=== PATIENT | male | born 1935 | race Caucasian/White ===

== ENCOUNTER 2016-12-17 07:29 | Emergency (ER) | payer MEDICARE ==
[~2016-12-17] VITALS: Ht 175.3 cm; Wt 77.0 kg
[2016-12-17] MEDS ORDERED: DILTIAZEM90 M1 PO (07:41)
[2016-12-17] MEDS ORDERED: ASPIRIN EC325 MG PO (07:41)
[2016-12-17] MEDS ORDERED: FUROSEMIDE20 MG PO (07:45)
[2016-12-17] MEDS ORDERED: SPIRIVA HANDIHALER IN (07:46)
[2016-12-17] MEDS ORDERED: MULTI VIT PO (07:46)
[2016-12-17] MEDS ORDERED: SYMBICORT1 AE1 IN (07:46)
[2016-12-17] MEDS ORDERED: PROAIR HFA IN (07:48)
[2016-12-17] MEDS ORDERED: ALBUTEROL SUL0.083 % IN (07:50)
[2016-12-17] MEDS ORDERED: K-DUR/KLOR-CON20 MEQ PO (07:51)
[2016-12-17] MEDS ORDERED: LEVOTHYROXIN25 MC1 PO (07:51)
[2016-12-17] MEDS ORDERED: [UNRECOGNIZED DRUG - OTHER] PO (07:52)
[2016-12-17] MEDS ORDERED: ALPRAZOLAM0.25 MG PO (07:53)
[2016-12-17] MEDS ORDERED: ROBAFEN DM1 M1 PO (07:54)
[2016-12-17 08:39] LABS: HEMATOCRIT 47.3 % (39.0-50.0); HEMOGLOBIN 14.5 g/dl (14.0-18.0); IMMATURE GRANULOCYTES 0.3 % (0.0-1.0); MEAN CELL VOLUME 101.5 fL CALC (80.0-100.0); MEAN CORPUSCULAR HGB 31.1 pG CALC (26.0-32.0); MEAN CORPUSCULAR HGB CONC 30.7 g/L CALC (32.0-36.0); NEUT# 4.03 thou/uL (1.82-7.42); RED BLOOD COUNT 4.66 mill/uL (4.70-6.10)
[2016-12-17 08:50] LABS: ALBUMIN 3.6 g/dL (3.2-5.0); ALKALINE PHOSPHATASE 66 u/l (38-126); BILIRUBIN, TOTAL 0.8 mg/dL (0.0-1.4); BUN 17 mg/dL (8-23); BUN/CREATININE RATIO 25 (12-20 (CALC)); CALCIUM 8.7 mg/dL (8.4-10.2); CHLORIDE 100 mmol/l (95-108); CREATININE 0.7 mg/dL (0.7-1.3); GFR > 60 ML/MIN (>=60 (CALC)); GFR FOR AFR.AMER. > 60 ML/MIN (>=60 (CALC)); GLUCOSE 95 mg/dL (82-115); POTASSIUM 4.4 mmol/l (3.5-5.1); SGOT/AST 22 u/l (19-48); SGPT/ALT 34 u/l (11-66); SODIUM 146 mmol/l (137-146); TOTAL PROTEIN 5.9 g/dL (6.3-8.2)
[2016-12-17 09:01] LABS: ANION GAP 11 (6-22 (CALC))
[2016-12-17 09:02] LABS: CARBON DIOXIDE 39 mmol/l (22-30)
[2016-12-17 09:06] LABS: MYOGLOBIN 43 ng/mL (0 - 121)
[2016-12-17 09:21] LABS: URINE BILIRUBIN - DIPSTICK NEGATIVE (NEGATIVE); URINE BLOOD DIPSTICK NEGATIVE (NEGATIVE); URINE CLARITY CLEAR; URINE COLOR YELLOW; URINE GLUCOSE - DIPSTICK NEGATIVE (NEGATIVE); URINE KETONE NEGATIVE (NEGATIVE); URINE LEUK ESTERASE NEGATIVE (NEGATIVE); URINE NITRITE - DIPSTICK NEGATIVE (Negative); URINE PH 7.5 (4.5-8.0); URINE PROTEIN - DIPSTICK NEGATIVE (NEG-TRACE); URINE SPECIFIC GRAVITY 1.015; URINE UROBILINOGEN - DIPSTICK 0.2 E.U./dL (0.2)
[2016-12-17] MEDS ORDERED: ZPAK PO (09:44)
[2016-12-17 09:56] VITALS: BP 105/61
== END 2016-12-17 10:30 ==
LOC: ED 07:29
PROVIDERS: Emergency Medicine
DX: J44.1 Chronic obstructive pulmonary disease with (acute) exacerbation (principal); R06.02 Shortness of breath; R07.9 Chest pain, unspecified; R00.0 Tachycardia, unspecified; I48.91 Unspecified atrial fibrillation; I10 Essential (primary) hypertension

== ENCOUNTER 2017-01-23 07:40 | Inpatient (IN) | payer MEDICARE ==
[~2017-01-23] VITALS: Ht 175.3 cm; Wt 75.7 kg
[2017-01-23] VITALS (17 sets, daily range): BP systolic 94–154; BP diastolic 63–86
[~2017-01-23 07:40] MED LIST: ALBUTEROL SUL0.083 % IN; ALPRAZOLAM0.25 MG PO; ASPIRIN EC325 MG PO; DILTIAZEM90 M1 PO; FUROSEMIDE20 MG PO; K-DUR/KLOR-CON20 MEQ PO; LEVOTHYROXIN25 MC1 PO; MOTRIN400 MG PO; MULTI VIT PO; PROAIR HFA IN; ROBAFEN DM1 M1 PO; SPIRIVA HANDIHALER IN; SYMBICORT1 AE1 IN; ZPAK PO
--- NOTE | 2017-01-23 07:40 | NUR ---
TO ROOM 10 VIA STRETCHER BY EMS
--- NOTE | 2017-01-23 07:40 | NUR ---
PATIENT SITTING UP ON STRETCHER UNABLE TO RESPOND TO QUESTIONS, UNABLE TO OBTAIN PNEUMONIA ASSESSMENT. ON 2L O2 VIA NASAL CANULA. WHEEZING IN ALL LUNG FEILDS. RT AT BEDSIDE. WILL CONTINUE TO MONITOR.
[2017-01-23 08:17] LABS: HEMATOCRIT 47.4 % (39.0-50.0); HEMOGLOBIN 14.1 g/dl (14.0-18.0); IMMATURE GRANULOCYTES 0.4 % (0.0-1.0); MEAN CELL VOLUME 108.5 fL CALC (80.0-100.0); MEAN CORPUSCULAR HGB 32.3 pG CALC (26.0-32.0); MEAN CORPUSCULAR HGB CONC 29.7 g/L CALC (32.0-36.0); NEUT# 8.13 thou/uL (1.82-7.42); RED BLOOD COUNT 4.37 mill/uL (4.70-6.10); RED CELL DISTRI WIDTH 15.1 % (11.5-15.5)
[2017-01-23 08:32] LABS: ALKALINE PHOSPHATASE 74 u/l (38-126); BILIRUBIN, TOTAL 0.6 mg/dL (0.0-1.4); BUN 32 mg/dL (8-23); BUN/CREATININE RATIO 42 (12-20 (CALC)); CALCIUM 8.8 mg/dL (8.4-10.2); CHLORIDE 96 mmol/l (95-108); CREATININE 0.7 mg/dL (0.7-1.3); GFR > 60 ML/MIN (>=60 (CALC)); GFR FOR AFR.AMER. > 60 ML/MIN (>=60 (CALC)); GLUCOSE 137 mg/dL (82-115); POTASSIUM 4.8 mmol/l (3.5-5.1); SGOT/AST 26 u/l (19-48); SGPT/ALT 49 u/l (11-66); SODIUM 146 mmol/l (137-146); TOTAL PROTEIN 6.4 g/dL (6.3-8.2)
[2017-01-23 08:39] LABS: ANION GAP 13 (6-22 (CALC))
--- NOTE | 2017-01-23 08:40 | NUR ---
PRO IN PLACE PATIENT TOLERATED WELL.
[2017-01-23 08:45] LABS: CARBON DIOXIDE 42 mmol/l (22-30)
[2017-01-23 08:51] LABS: MYOGLOBIN 42 ng/mL (0 - 121)
--- NOTE | 2017-01-23 08:58 | NUR ---
SBAR PRINTED TO FLOOR
--- NOTE | 2017-01-23 09:10 | NUR ---
PATIENT ABLE TO STATE NAME AND . BIPAP IN PLACE AND TOLERATING WELL. WILL CONTINUE TO MONITOR.
[2017-01-23 09:21] LABS: URINE BILIRUBIN - DIPSTICK NEGATIVE (NEGATIVE); URINE BLOOD DIPSTICK MODERATE (NEGATIVE); URINE COLOR YELLOW; URINE GLUCOSE - DIPSTICK NEGATIVE (NEGATIVE); URINE KETONE NEGATIVE (NEGATIVE); URINE LEUK ESTERASE NEGATIVE (NEGATIVE); URINE NITRITE - DIPSTICK NEGATIVE (Negative); URINE PROTEIN - DIPSTICK 30 mg/dL (NEG-TRACE); URINE SPECIFIC GRAVITY >=1.030; URINE UROBILINOGEN - DIPSTICK 0.2 E.U./dL (0.2)
--- NOTE | 2017-01-23 09:23 | NUR ---
REPORT GIVEN TO MELISSA SEVILLA.
[2017-01-23 09:29] LABS: URINE CLARITY SL CLOUDY
[2017-01-23 09:41] LABS: TSH, 3RD GENERATION 2.39 uIU/mL (0.47 - 4.68)
--- NOTE | 2017-01-23 09:45 | NUR ---
PT ADMITTED TO ICU BED 8 VIA STRETCHER FROM ER, WITH RT AT BEDSIDE AND BIPAP IN USE, SEE FLOW SHEET FOR SETTINGS, PT DROWSY BUT AROUSES, TO VERBAL STIMULI BUT NODS OFF EASILY AGAIN, MAX ASSIST TRANSFER TO BED, LUNGS ARE TIGHT WITH WHEEZES HEARD THRU OUT, PT O2 DEPENDENT AT HOME, ABD SOFT AND BS ACTIVE, INCONTINENT OF SMEAR OF STOOL, JENNIFER CARE PROVIDED AND PRO CATHETER INTAKE WITH JARAD URINE DRAINING AND CATH STRAP SECURE. ALL MONITORING EQUIPMENT EXPLAINED PRIOR TO APPLICATION, WILL REINFORCE EDUCATION NEEDED RELATED TO DROWSINESS, SKIN INTACT WITH NO BREAKDOWN NOTED, SOME MINIMAL BLANCAHBEL REDNESS NOTED TO COCCYX AREA, TELE READING A FIB RATE 90-110'S, BP SLIGHTLY HYPOTENSIVE CONSISTENT SEE INTERVENTION FOR DETAILS. 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
--- NOTE | 2017-01-23 09:50 | NUR ---
PATIENT TRANSPORTED TO ICU WITH MONITOR AND BIPAP IN PLACE. RT ALONG TO TRANSPORT. TO UNIT VIA STRETCHER ASSISTED BY SHINGLE CATCHER.
[2017-01-23] MEDS ORDERED: PROVENTIL0.083 % NEB (10:04)
--- NOTE | 2017-01-23 10:30 | NUR ---
PT RESTING, CONTINUES TO TOLERATE BI PAP, NO S/S OF DISTRESS NOTED, CALL JARRELL WITHIN REACH, BP REMAINS SLIGHTLY HYPOTENSIVE BUT STABLE, AFEBRILE, COMFORT MEASURES PROVIDED AND REPOSITIONED, EASILY VISIBLE FROM NURSES STATION FOR SAFETY.
--- NOTE | 2017-01-23 11:15 | NUR ---
DAUGHTER CALLED AND STATED PT HAS "HAD SUNDOWNERS BAD AT HOME AND SHE HAS BEEN STAYING AWAKE TO MAKE SURE HE KEEPS HIS OXYGEN ON AT NIGHT" STAETS THAT HE NEEDS TO BE PLACED IN AN ASSISTED LIVING FACILITY, PT IS UNKEMPT WITH DRY SCALY SKIN. ENCOURAGED DAUGHTER TO MEET WITH CASE MGMT AND PT REGARDING POST D/C PLAN OF CARE.
--- NOTE | 2017-01-23 12:38 | NUR ---
PT RESTING CONTINUES TO TOLERATE BI PAP, DOZING AROUSES TO VERBAL STIMULI BUT NODS OFF QUICKLY, VS REMAIN STABLE, TELE CONTINUES TO READ A FIB RATE 95-110'S, CALL JARRELL WITHIN REACH, WILL CONTINUE TO MONITOR
--- NOTE | 2017-01-23 13:35 | NUR ---
PT ATTEMPTING TO GET OOB, WHEN ASKED WHERE HE IS GOING PT STATES "I HAVE A COUNTRY TO RUN" REORIENTED TO SURROUNDINGS AND CIRCUMSTANCES, BACK TO BED
--- NOTE | 2017-01-23 13:45 | NUR ---
PT AGAIN ATTEMPTING TO GET OOB, STAING HE HAS A COUNRTY TO RUN, AND THAT HE HAS TO PEE ZULY ESTRADA, ATTEMPT TOT EXPLAIN PRO CATHETER TO PATIENT, WITHOUT SUCCESS
--- NOTE | 2017-01-23 13:55 | NUR ---
IN TO SEE PT PLAN OF CRE DISCUSSED, BI PAP ON HOLD AT HTIS TIME, O2 PLACED AT 3L VIA NASAL CANNULA, MAINTAINING SAT 94%, PT INSISTENT ON GETTING OOB, WHEN ASKED WHERE HE WANTS TO GO PT DOESN'T ANSWER, CALL JARRELL WITHIN REACH
--- NOTE | 2017-01-23 14:19 | NUR ---
PT TOOK PO MEDICATIONS AT THIS TIME W/O INCIDENT, PT APPEARS ANGRY WHEN ASKED IF THERE IS ANYTHING ELSE WE CAN DO TERSELY STATES I NEED TO SLEEP, I AM FINE LET ME SLEEP. CALL JARRELL WITHIN REACH
--- NOTE | 2017-01-23 15:00 | NUR ---
pt resting , continues to tolerate nasal cannula, offers no new complaints, call vagras within reach.
--- NOTE | 2017-01-23 15:10 | NUR ---
Pt saturations dropping resps more labored, hr elevated, pt placed back on bi-pap with his consent, will monitor tolerance, sats immediately up to 89% frm 82%, will monitor closely
--- NOTE | 2017-01-23 15:20 | NUR ---
Visited ER for med rec. Went over pt's home med, pt did not recall the strengths of, requested pt's rx med list from his pcp () and updated pt's home med list accordingly. No drug/food allergies reported. Pt did not have any concerns or questions.
--- NOTE | 2017-01-23 16:30 | NUR ---
pt hr continues to flucaute and remains tachucardic slowly increasing, notified
--- NOTE | 2017-01-23 17:30 | NUR ---
PT MEDICATED WITH DIGOXIN ORDERED, WILL MONITOR HR, VS REMAIN STABLE, CONTINUES TO TOLERATE BI PAP, RESTING COMFORTABLY, NO S/S OF DISTRESS, CALL JARRELL WITHIN REACH
--- NOTE | 2017-01-23 18:15 | NUR ---
lab at bedside for lab work draw
--- NOTE | 2017-01-23 18:45 | NUR ---
RECEIVED REPORT FROM DI KEENAN RN. PT APPEARS TO BE SLEEPING WITH EYES CLOSED, ON BIPAP, VSS STABLE ON MONITOR, PRO DRAINING BY GRAVITY CLEAR YELLOW URINE, NO DISTRESS NOTED, VOICEDS NO COMPLAINTS, A-FIB ON THE MONITOR, HR 95-103, WILL FOLLOW UP WITH ASSESSMENT AND MED SCHEDULE, CALL JARRELL AT REACH.
--- NOTE | 2017-01-23 20:26 | NUR ---
PT IS DROWSY, ANSWERS BY YES OR NO, ON BIPAP, MONITOR SHOWS A-FIB, HR 96-101, BP 99/63, SPO2 94%, REPOSITIONED FOR COFORT TO RIGHT SIDE, HAD A SMEAR BM, NONBLANCHABLE REDNESS NOTED TO COCCYX, NO SKIN BREAKDOWN, WEAK PEDAL PULSES, LUNGS ARE WHEEZE WITH DIMINISHED BIBASILAR, BRUISES TO BUE, HAS A 20G L WRIST, 20G LAC WITH NS AT 50 ML/HR, IV SITES APPEARS HEALTHY, CALL JARRELL AT REACH, WILL CONTINUE TO MONITOR, RT AT PT ROOM.
--- NOTE | 2017-01-23 22:15 | NUR ---
PT ON BIPAP, RESTING QUIETLY IN BED, NO DISTRESS NOTED, VOICES NO COMPLAINTS, VITAL SIGNS STABLE ON MONITOR, AFIB, HR 95, PRO CONTINUE DRAINING BY GAVITY SMALL AMOUNTS OF URINE. WILL CONTINUE TO MONITOR.
[2017-01-24] VITALS (24 sets, daily range): BP systolic 88–126; BP diastolic 54–94
--- NOTE | 2017-01-24 00:20 | NUR ---
PT AWAKE CONFUSE, STATES "WHAT IS THIS." EXPLAINED ABOUT BIPAP, REORIENTED TO SURROUNDING, REMOVED BIPAP MASK TO TAKE A SIP OF WATER, ASSISTED PLACING MASK ON, REPOSITIONED FOR COMFORT WITH PILLOW SUPPORTING BACK. DENIES PAIN OR SOB.
--- NOTE | 2017-01-24 03:19 | NUR ---
RT IN PT ROOM CHECKING O2 SATS. SPO2 81% ON MONITOR, CHANGED PULSE OX, SPO2 94%, RR 24, DENIES SOB, INSTRUCTED ON BREATHING TECHN, REPOSITIONED FOR COMFORT. CALL JARRELL AT REACH.
--- NOTE | 2017-01-24 04:37 | NUR ---
PT CONTINUES ON BIPAP, REMOVING IT ON AND OFF, AWAKE, WANTS TO GET UP TO URINATE, EXPLAINED THAT HE HAS A PRO FIFI, VOICES UNDERSTANDING, STATES "OH I FORGOT," CALL JARRELL AT REACH. SAFETY MEASURES IN PLACE.
--- NOTE | 2017-01-24 04:45 | NUR ---
PT WOKE UP CONFUSE, SAT ON SIDE OF BED, REMOVED BIPAP MASK, STATED "I NEED TO GET DRESS UP." REORIENTED TO ENVIRONMENT, CONTINUES CONFUSE, STATES "MY OXYGEN TANK IS RUNNING OUT OF OXYGEN." "I NEED TO CALL SOMEBODY TO PICK ME UP." VOICES NEED TO USE THE BRP, EDUCATED ABOUT PRO CATH, DENIES NEED OF DEFECATE, APPEARS CONFUSE AND ANXIOUS, IS SHAKY, REFUSES TO LIE DOWN IN BED. DESATING TO 87%. ON 2LPM VIA NC. INSTRUCTED ON BREATHING TECH AND NEED FOR BIPAP, STATES "NO." IN A LOUD TONE OF VOICE. WILL MEDICATE PER ORDER WITH XANAX, CALLED RT FOR BREATHING TX.
--- NOTE | 2017-01-24 04:55 | NUR ---
RT IN PT ROOM ADMINISTERING A BREATHING TX. MEDICATED WITH XANAX. ALERT AND ORIENTED X3. RESP ARE SLIGHTLY LABORED, ON 2LPM VIA NC AT THIS TIME, REFUSES TO WEAR THE MASK NOW, SPO2 94%. WILL MONITOR CLOSELY.
--- NOTE | 2017-01-24 05:55 | NUR ---
MANAGER LEAN IN PT ROOM DRAWING LAB SAMPLES, PT CONTINUES ON 2LPM O2 VIA NC, REFUSES BIPAP MASK, SPO2 93%, REMAINS AFIB ON THE MONITOR, HR 105. NO DISTRESS NOTED AT THIS TIME, CALL JARRELL AT REACH.
--- NOTE | 2017-01-24 06:13 | NUR ---
OFF BIPAP, ON 2LPM VIA NC, SPO2 AT 96%, MONITOR SHOWS AFIB, HR 105-112, BP 100/59, REFUSES TO HAVE BLANKETS ON, STATES FEELS TOO WARM, AFEBRILE. APPEARS CALM, LYING IN HIGH SAUCEDA'S POSITION, DENIES PAIN OR SOB. PT REFUSED TO WEAR TEDHOSE AND SOCKS. IV SITE IS PATENT, INFUSING FLUIDS WITHOUT PROBLEM. CONFUSE ON AND OFF, REORIENTED TO PLACE AND TIME, ALERT ON NAME AND .
[2017-01-24 06:24] LABS: HEMATOCRIT 46.1 % (39.0-50.0); HEMOGLOBIN 13.8 g/dl (14.0-18.0); MEAN CELL VOLUME 106.5 fL CALC (80.0-100.0); MEAN CORPUSCULAR HGB 31.9 pG CALC (26.0-32.0); MEAN CORPUSCULAR HGB CONC 29.9 g/L CALC (32.0-36.0); RED BLOOD COUNT 4.33 mill/uL (4.70-6.10); RED CELL DISTRI WIDTH 14.6 % (11.5-15.5)
[2017-01-24 06:40] LABS: BUN 31 mg/dL (8-23); BUN/CREATININE RATIO 53 (12-20 (CALC)); CALCIUM 8.8 mg/dL (8.4-10.2); CHLORIDE 97 mmol/l (95-108); CREATININE 0.6 mg/dL (0.7-1.3); GFR > 60 ML/MIN (>=60 (CALC)); GFR FOR AFR.AMER. > 60 ML/MIN (>=60 (CALC)); GLUCOSE 152 mg/dL (82-115); MAGNESIUM 2.3 mg/dL (1.6-2.3); POTASSIUM 4.4 mmol/l (3.5-5.1); SODIUM 145 mmol/l (137-146)
[2017-01-24 06:47] LABS: ANION GAP 11 (6-22 (CALC))
[2017-01-24 06:49] LABS: CARBON DIOXIDE 41 mmol/l (22-30)
--- NOTE | 2017-01-24 07:25 | NUR ---
PT ALERT RESTING IN BED, IS FORGETFUL ABOUT LOCATION, DETAILS SURROUNDING HOSPITALIZATION, L.O.S. ETC...REORIENTED TO SURROUNDINGS, PT SHORT TERM MEMORY OFF, LUNGS WITH WHEEZES BUT BETTER AIR MOVEMENT THAN THIS NURSE HEARD YESTERDAY ON ADMISSION, IVF INFUSING, ABD SOFT AND BS ACTIVE TRACE PEDAL EDEMA NOTED, PT HAS VERY DRY SKIN, WITH NO BREAKDOWN NOTED SAFETY MEASURES REINFORCED CALL JARRELL WITHIN REACH, EASILY VISIBLE FROM NURSES STATION FOR SAFETY RELATED TO IMPULSIVENESS, BED ALARM ACTIVATED WELL FOR SAFETY.
--- NOTE | 2017-01-24 08:15 | NUR ---
PT RESTING REPOSITIONED IN BED, AGAIN REORIENTED TO SURROUNDINGS AND REASON FOR ADMISSION, O2 REMAINS ON AT 2L WITH O2 SAT 86-95%, WILL CONTINUE TO MONITOR.
--- NOTE | 2017-01-24 09:20 | NUR ---
TOOK AM PO MEDICATIONS W/O INCIDENT, REMAINS CONFUSED WITH POOR SHORT TERM MEMORY NOTED, CALL JARRELL WITHIN REACH
--- NOTE | 2017-01-24 09:47 | NUR ---
IN TO SEE PATIENT
--- NOTE | 2017-01-24 11:01 | NUR ---
PT REMAINS CONFUSED AT TIMES, PULLED IV ACCESS OUT, NEW 22G STARTED AND IVF REATTAHCED, PT TOLERATED WELL.
--- NOTE | 2017-01-24 12:11 | NUR ---
VISITOR AT BEDSIDE, IVF CONTINUE ORDERED, CALL JARRELL WITHIN REACH, CONTINUES TO TOLERATE NC, FREQUENT REMINDERS TO LEAVE EQUIPMENT ALONE PT FORGETFUL AND REMOVES O2 SAT PROBE, HAS REMOVED IV SITE X 2, CONTINUE TO PROVIDE FREQUENT REMINDERS
--- NOTE | 2017-01-24 14:00 | NUR ---
PT RESTING OCCASIONALLY RESTLESS, REQUIRES FREQUENT SAFETY REMINDERS TO NOT GET OOB WITHOUT ASSIST, ETC, COMFORT MEASURES PROVIDED, WILL CONTINUE TO MONITOR.
--- NOTE | 2017-01-24 15:42 | NUR ---
PT REMAINS IMPULSIVE AND REQUIRES FREQUENT REMINDERS AND INTERVENTION TO STAY IN BED OR STAND AT BEDSIDE, GAIT UNSTEADY WITH POOR BALANCE, CATHETER REMAINS IN PLACE AND DRAINING CLEAR YELLOW URINE. CATH STARP REMAIN SECURE, WILL COTNINUE TO MONITOR.
--- NOTE | 2017-01-24 16:25 | NUR ---
PT AGAIN ATTEMPTING TO GET OOB REORIENTED AND REPOSITIONED, CALL JARRELL WITHIN REACH.
--- NOTE | 2017-01-24 17:00 | NUR ---
RECEIVED REPORT FROM DI KEENAN RN. PT RESTING IN BED WITH EYES CLOSED, A/O X3, EASILY AROUSES TO VERBAL OR PHYSICAL STIMULI, DENIES PAIN OR SOB, NO DISTRESS NOTED AT THIS TIME, RESP ARE UNLABORED, VSS ON MONITOR, CALL JARRELL AT REACH.
--- NOTE | 2017-01-24 17:15 | NUR ---
SET UP DINNER TRAY ON BED SIDE TABLE, PT SAT ON SIDE OF BED TO EAT DINNER.
--- NOTE | 2017-01-24 18:00 | NUR ---
PT SITTING ON SIDE OF BED EATING DINNER, SPO2 78% ON MONITOR, PT HAD TAKEN OFF OXYGEN, STATES "YOU ARE OVER OXYGENATING ME." PLACED NC BACK TO NARES, REFUSES BIPAP MASK, INSTRUCTED ON BREATHING EXERCISES, REFUSES TO FOLLOW COMMANDS, REPEATS "YOU ARE OVER OXYGENATING ME." PLACED BACK ON OXYGEN VIA NC, SPO2 READING 90% ON MONITOR, PT IS ALERT AND ORIENTED X2 NOT TO SITUATION, ASKING, "WHY AM I HERE." EXPLAINED RATIONALE FOR ADMISSION TO [facility], KEEPS PULLING OFF WIRES, SEEMS ANXIOUS, WILL MEDICATE WITH XANAX PER EMAR.
--- NOTE | 2017-01-24 18:11 | NUR ---
PT FINISHED EAT 25% OF DINNER. RESP ARE SLIGHTLY LABORED, INSTRUCTED TO PAUSE DURING ACTIVITIES AND DEEP BREATHING EXERCISES. REFUSES TO FOLLOW COMMANDS, IS A/O X2, NOT TO SITUATION, STATES "YOU ARE OVEROXYGANATING ME." PICKING ON WIRES. REORIENTED NEEDED. BACK IN BED IN HIGH SAUCEDA'S POSITION, SPO2 AT 88-90% ON 2LPM VIA NC. CALL JARRELL AT REACH.
--- NOTE | 2017-01-24 19:45 | NUR ---
PT PICKING ON MONITOR WIRES, REMOVED THEM ALL, TRYING TO GET UP, IS A/O TO SELF, NOT TO SITUATION AND PLACE, STATED "I NEED A CIGARETTE." REORIENTED NEEDED, EDUCATED ABOUT RATIONALE FOR HAVING MONITOR WIRES, IV, O2 VIA NC, VOICES UNDERSTANDINGS, PRO DRAINING SMALL AMOUNTS OF CLEAR YELLOW URINE, LEG STRAP SECURING IT, DENIES PAIN, MONITOR SHOWS AFIB, HR STABLE, AFEBRILE, LUNGS ARE WHEEZE ON AUSCULTATION, SATING AT 90%, HAS A 22G LFA INFUSING NS AT 50 ML/HR, IV SITE IF FREE OF REDNESS OR EDEMA, ENCOURAGED TO CALL IF NEEDED, CALL JARRELL AT REACH.
--- NOTE | 2017-01-24 21:40 | NUR ---
PT RESTING IN BED QUIETLY, APPEARS TO BE SLEEPING, VSS ON MONITOR, APPEARS IN NO DISTRESS, SPO2 93% ON 2LPM NC.
--- NOTE | 2017-01-24 23:40 | NUR ---
PT DESATING TO 87%, RT (NADEEM) IN PT ROOM CHECKING OXYGEN WITH THE PORTABLE PULSE OX, READS 88%-90% on 2LPM VIA NC. NO DISTRESS NOTED.
[2017-01-25] VITALS (13 sets, daily range): BP systolic 95–149; BP diastolic 54–102
--- NOTE | 2017-01-25 | NUR ---
PT APPEARS TO BE SLEEPING WITH EYES CLOSED, SPO2 88-90% ON 2LPM VIA NC, NO DISTRESS NOTED, SKIN WARM AND DRY, ACYANOTIC, CAP REFILL LESS THAN THREE SECS. RESP ARE SHALLOW, WILL CONTINUE TO MONITOR.
--- NOTE | 2017-01-25 02:10 | NUR ---
REPOSITIONED TO HIGH SAUCEDA'S POSITION, APPEARS IN NO DISTRESS, VOICES NO COMPLAINTS, RESP ARE SHALLOW, SPO2 90% ON MONITOR, BUE ARE COLD TO TOUCH, PROVIDED AN EXTRA BLANKET, VSS, AFIB ON MONITOR. WILL CONTINUE TO MONITOR.
--- NOTE | 2017-01-25 03:54 | NUR ---
PT AWAKE, A/O X3, PLEASANT AND CALM, APPEARS TO BE IN NO DISTRESS, RESP ARE EVEN AND UNLABORED, WATCHING TV, SPO2 90% WITH PORTABLE PULSE OX, DENIES N/V, PAIN, SOB, ENCOURAGED TO CALL IF NEEDED, VOICES UNDERSTANDING, CALL JARRELL AT REACH.
[2017-01-25 05:02] LABS: HEMATOCRIT 42.5 % (39.0-50.0); HEMOGLOBIN 12.8 g/dl (14.0-18.0); IMMATURE GRANULOCYTES 0.9 % (0.0-1.0); MEAN CELL VOLUME 104.9 fL CALC (80.0-100.0); MEAN CORPUSCULAR HGB 31.6 pG CALC (26.0-32.0); MEAN CORPUSCULAR HGB CONC 30.1 g/L CALC (32.0-36.0); NEUT# 8.8 thou/uL (1.82-7.42); RED BLOOD COUNT 4.05 mill/uL (4.70-6.10); RED CELL DISTRI WIDTH 14.8 % (11.5-15.5)
--- NOTE | 2017-01-25 05:07 | NUR ---
HOG COOLER IN PT ROOM DRAWING LAB SAMPLES, PT REQUESTING COFFEE, NOTIFIED PT THAT WILL MAKE SOME COFFEE. NO DISTRESS NOTED, VERY PLEASANT, A/OX3, WATCHING TV, MONITOR SHOWS AFIB, VSS, RESP ARE SHALLOW, SPO2 93% ON 2LPM VIA NC.
[2017-01-25 05:21] LABS: BUN 33 mg/dL (8-23); BUN/CREATININE RATIO 60 (12-20 (CALC)); CALCIUM 8.5 mg/dL (8.4-10.2); CHLORIDE 98 mmol/l (95-108); CREATININE 0.6 mg/dL (0.7-1.3); GFR > 60 ML/MIN (>=60 (CALC)); GFR FOR AFR.AMER. > 60 ML/MIN (>=60 (CALC)); GLUCOSE 137 mg/dL (82-115); POTASSIUM 4.6 mmol/l (3.5-5.1); SODIUM 143 mmol/l (137-146)
[2017-01-25 05:28] LABS: ANION GAP 9 (6-22 (CALC))
[2017-01-25 05:33] LABS: CARBON DIOXIDE 41 mmol/l (22-30)
--- NOTE | 2017-01-25 05:41 | NUR ---
ASSISTED PT OOB, VOIDED 100CC CLEAR CONCENTRATED YELLOW URINE, SAT ON CHAIR, ASSISTED TO WASH UP, CHANGED LINENS, GOWN, MOUTH RINSE, DENTURE CARE, PROVIDED FRESH WATER, ASSITED PT BACK TO BED, WARM BLANKET PROVIDED. CALL JARRELL, BST, URINAL AT REACH, ENCOURAGED TO CALL IF NEEDED, TOLERATED ACTIVITY WELL, UNSTEADY GAIT NOTED. CONTINUOUS AFIB ON MONITOR, OCCA PVC'S AND PACED BEATS, VSS. @ 0507 - FOUND 18G LAC DISLOGED, IV CATH TIP INTACT, NO BLEEDING OR REDNESS AT SITE, STARTED A NEW IV SITE, 22G RAC SALINE LOCKED, FLUSHED WELL.
--- NOTE | 2017-01-25 06:56 | NUR ---
REPORT RECEIVED FROM MELISSA HERNANDEZ. PT RESTING SUPINE, VSS. WATCHING TV. CALL LIGHT WITHIN REACH. INSTRUCTED PT TO CALL FOR ASSISTANCE, WILL CONTINUE TO MONITOR.
--- NOTE | 2017-01-25 07:30 | NUR ---
PT TRAY DELIVERED, DISPOSITION UNPLEASANT. STATES " I CANT EAT THIS WAY", HELPED PT TO SOB. PT AGITATED WITH CATHETER STATES "I HAVE TO PEE, SOMETHING HAS TO BE DONE." PT SITTING ON TUBING, IMMEDIATE FLOW OF CLEAR URINE VISIBLE IN TUBING. WILL ATTEMPT TO HAVE CATHETER D/C'D BY TODAY, ONCE ON FLOOR. PT CALL LIGHT WITHIN REACH. PT IS A/OX3 AT THIS TIME. INSTRUCTED PT TO CALL FOR ASSISTANCE.
--- NOTE | 2017-01-25 08:00 | NUR ---
PT STANDING AT SOB, BOUNCING UP AND DOWN. STATES "I GOTTA MOVE, AND I LEESA HAVE SOMETHING DONE ABOUT THIS STINKING CATHETER, WHY CANT I HAVE IT OUT?!" CATHETER REMOVED AT THIS TIME PER PT'S REQUEST, 350CC OF CLEAR YELLOW URINE EMPTIED FROM PRO BAG, PT GIVEN URINAL. PT UNABLE TO VOID INDEPENDANTLY UN URINAL. PT ASSISTED SAFELY TO BSC. STATES "THANK GOD, I GET TO MOVE AROUND." PT SETUP FOR AM CARE, ABLE TO INDEPENDANTLY PERFORM. AM MEDICATIONS GIVEN AT THIS TIME. LINENS CHANGED, PT ASKS "WHY ARE THE SHEETS BLACK?" EXPLANATION OF BLACK MATTRESS PROVIDED. STATES UNDERSTANDIGN WESTERN CHANNEL TURNED ON PT STATES ENJOYMENT. CALL LIGHT WITHIN REACH. WILL CONTINUE TO MONITOR.
--- NOTE | 2017-01-25 08:45 | NUR ---
RT IN AT THIS TIME TO PROVIDE IS, AND GIVE EDUCATION. PT ABLE TO PERFORM TASK WITHOUT NEEDING FURTHER EDUCATION. DOES NOT APPEAR TO HAVE DISTRSS WITH EXERCISE. SPO2 REMAINS THE SAME 88-93%
--- NOTE | 2017-01-25 13:50 | NUR ---
MD IN TO SEE PT, PT SELF REPORTS FEELING MUCH BETTER. MD STATES WILL TRANSFER TO MEDICAL FLOOR.
--- NOTE | 2017-01-25 14:20 | NUR ---
MEDICAL FLOOR NOTIFIED OF TRANSFER, WILL AWAIT BED ASSIGNMENT. PT UPDATED TO ADJUSTMENTS, STATES UNDERSTANDING.
--- NOTE | 2017-01-25 16:00 | NUR ---
REPORT GIVEN TO HAO GASCA. PT STABLE AT TIME OF TRANSFER TO ROOM 281.
--- NOTE | 2017-01-25 16:05 | NUR ---
PT RECIEVED VIA WC ACCOMPANIED BY MELISSA RODRIGUEZ. PT UP TO BED WITH MIN. ASSIST. VSS. PT ORIENTED TO ROOM AND CALL LIGHT SYSTEM. PT VOICES NO CONCERNS AT THIS TIME. BED ALARM IN PLACE FOR PT SAFETY. WILL CONTINUE TO MONITOR. CALL LIGHT IN REACH.
--- NOTE | 2017-01-25 19:00 | NUR ---
RECEIVED CHANGE OF SHIFT REPORT FROM HAO GASCA. PATIENT LYING IN BED AND APPEA RS TO BE ASLEEP. RESPIRATION EVEN AND UNLABORED. NO APPARENT ACUTE DISTRESS NOTED.WILL CONTINUE TO MONITOR.
--- NOTE | 2017-01-26 | NUR ---
PATIENT RESTING QUIETLY AT THIS TIME. NO APPARENT ACUTE DISTRESS NOTED.
--- NOTE | 2017-01-26 03:32 | NUR ---
PATIENT APPEARS RESTLESS. MADE SEVERAL ATTEMPTS TO GET OOB. ALERT WITH PERIODS OF CONFUSION.
--- NOTE | 2017-01-26 04:00 | NUR ---
PATIENT AWAKE AND ATTEMPTING TO GET OOB. PT APPEARS NOT TO BE IN ANY ACUTE DISTRESS.
[2017-01-26 04:40] VITALS: BP 97/68
[2017-01-26 08:06] VITALS: BP 109/70
--- NOTE | 2017-01-26 08:06 | NUR ---
PT SITTING UP ON SIDE OF BED. BED ALARM HAS BEEN GOING OFF SEVERAL TIMES SINCE SHIFT CHANGE. PT A/OX2 BUT FORGETFUL. VSS. PT DENIES PAIN. POC DISCUSSED WITH PT. REORIENTATION WILL BE NEEDED. WILL CONTINUE TO MONITOR. CALL LIGHT IN REACH.
--- NOTE | 2017-01-26 09:00 | NUR ---
PT TRANSFERED TO RECLINER CHAIR WITH STANDBY ASSISTANCE. PT TOLERATED WELL. BED ALARM REMAINS IN PLACE FOR PT SAFETY. WILL CONTINUE TO MONITOR. CALL LIGHT IN REACH.
--- NOTE | 2017-01-26 12:00 | NUR ---
PT SITTING UP IN RECLINER CHAIR. LUNCH TRAY AT BEDSIDE. PT DENIES ANY NEEDS AT THIS TIME. IV ABT INFUSING AT PRESCRIBED RATE. BED ALARM IN PLACE. WILL CONTINUE TO MONITOR. CALL LIGHT IN REACH.
[2017-01-26] MEDS ORDERED: CARDIZEM CD240 MG PO (12:21)
[2017-01-26] MEDS ORDERED: ZPAK PO (12:22)
[2017-01-26] MEDS ORDERED: MEDDOSEPAK PO (12:22)
[2017-01-26] MEDS ORDERED: BUSPAR10 M1 PO (12:23)
[2017-01-26] MEDS ORDERED: TESSALON PERLE100 MG PO (12:23)
[2017-01-26] MEDS ORDERED: SPIRIVA RE2.5 MCG/AC INHW/SPAC (12:25)
[2017-01-26] MEDS ORDERED: OXY1 (12:27)
--- NOTE | 2017-01-26 14:42 | NUR ---
PT MEDICATED WITH XANAX. PT CONSTANTLY SOUNDING OFF BED ALARM. TRYING TO TAKE BED ALARM AT ALL TIMES. PT SITTING ON SIDE OF BED AND REPOSITIONED BACK IN BED. PT ASKING "WHEN WILL I BE GOING TO MY ROOM" REORIENTED AND INFORMED OF POC FOR D/C TO [facility]. STATES HE WILL TAKE A NAP. WILL CONTINUE TO MONITOR. CALL LIGHT IN REACH.
[2017-01-26 14:55] VITALS: BP 166/89
--- NOTE | 2017-01-26 16:24 | NUR ---
PT RESTING IN BED WITH EYES CLOSED. RESP EVEN AND UNLABORED. WILL CONTINUE TO MONITOR. CALL LIGHT IN REACH.
[2017-01-26 17:00] VITALS: BP 108/71
--- NOTE | 2017-01-26 19:00 | NUR ---
RECEIVED CHANGE OF SHIFT REPORT FRON HAO GASCA. PATIENT SITTING UP IN BED ALERT AND ORIENTED. DENIES PAIN. WILL CONTINUE TO MONITOR.
[2017-01-26 19:08] VITALS: BP 104/67
--- NOTE | 2017-01-27 | NUR ---
PATEINT LYING IN BED AND APPEARS TO BE ASLEEP. NO APPARENT ACUTE DISTRESS NOTED.
[2017-01-27 03:53] VITALS: BP 110/67
--- NOTE | 2017-01-27 04:00 | NUR ---
NO APPARENT ACUTE CHANGES NOTED IN PATIENT'S CONDITION.
--- NOTE | 2017-01-27 07:00 | NUR ---
RECEIVED BEDSIDE REPORT FROM THANH TORRES. RESTING IN BED WITH EYES CLOSED, AWAKENS EASILY RESPS EVEN AND UNLABORED ON 02 VIA NC. VOICES NO NEEDS AT THIS TIME. PLAN OF CARE DISCUSSED. SAFETY PRECAUTIONS REINFORCED. BED IN LOWEST POSITION WITH WHEELS LOCKED. CALL LIGHT WITHIN REACH. ENCOURAGED PT TO CALL FOR ANY NEEDS. BED ALARM ON FOR SAFETY.
[2017-01-27 08:24] VITALS: BP 113/63
--- NOTE | 2017-01-27 09:00 | NUR ---
UNABLE TO OBTAIN IV ACCESS AFTER 3 ATTEMPTS, DR LITTLE NOTIFIED. NEW ORDERS RECEIVED.
--- NOTE | 2017-01-27 10:10 | NUR ---
DR LITTLE IN WITH PT, NEW ORDERS RECEIVED.
--- NOTE | 2017-01-27 12:00 | NUR ---
SITTING ON EDGE OF BED EATING LUNCH. RESPS EVEN AND UNLABORED ON O2 VIA NC. DENIES PAIN OR DISCOMFORT. BED ALARM ON FOR SAFETY. CALL LIGHT WITHIN REACH. WILL CONTINUE TO MONITOR.
[2017-01-27 15:05] VITALS: BP 103/62
--- NOTE | 2017-01-27 16:14 | NUR ---
RESTING IN HIGH FOWLERS WATCHING TV. RESPS EVEN AND UNLABORED ON O2 VIA NC. DENIES PAIN OR DISCOMFORT. PO FLUIDS OFFERED. CALL LIGHT WITHIN REACH. ENCOURAGED PT TO CALL FOR ANY NEEDS.
--- NOTE | 2017-01-27 16:27 | NUR ---
AMBULATING IN HALLWAY WITH PT.
--- NOTE | 2017-01-27 16:47 | NUR ---
PATIENT IS PENDING ADMISSION TO INPATIENT REHAB, HE IS NOT YET STRONG ENOUGH FOR LIVING IN [place]. HE WAS ABLE TO TRANFER SIT TO STAND WITH V.C.'S FOR SAFETY IN HAND PLACEMENT. O2 REMOVED FOR AMB TO ASSESS IF DESAT WITH EXERTION. PATIENT AMB 200 FEET WITH FATIGUE BUT NO SOB. STANDING REST FOR 100 FT X 2. O2 AT 85% AND SUPPLEMENTAL O2 REPLACED. RESPITORY IN FOR BREATHING TX. PATIENT RETURNED BACK TO BED FOR SAME. TRAY TALDAVID AND CALL JARRELL WITHIN REACH. NO GIVING WAY OF LE'S TODAY. LACKING INDEP SAFETY AWARENESS, ENDURANCE, STRENGTH WITH SUPPLEMENTAL O2 REQUIRED. WILL BENEFIT FROM INPATIENT REHAB TO ENABLE TRANSITION TO INTERMEDIATE ONCE GOALS MET.
--- NOTE | 2017-01-27 19:00 | NUR ---
RECEIVED CHANGE OF SHIFT REPORT FROM MELISSA RANGEL. PATIENT LYING IN BED WITH EYES CLOSED AND APPEARS TO BE ASLEEP. RESPIRATION EVEN AND UNLABORED. NO APPARENT ACUTE DISTRESS NOTED. WILL CONTINUE TO MONITOR.
[2017-01-27 20:00] VITALS: BP 110/62
--- NOTE | 2017-01-28 | NUR ---
PATIENT RESTING QUIETLY AT THIS TIME. NO APPARENT ACUTE DISTRESS NOTED. WILL CINTINUE TO MONITOR.
--- NOTE | 2017-01-28 04:00 | NUR ---
NO APPARENT ACUTE CHANGES NOTED IN PATIENT'S CONDITION.
[2017-01-28 04:32] VITALS: BP 93/62
--- NOTE | 2017-01-28 07:00 | NUR ---
REPORT RECIEVED FROM MELISSA LAW. PT ASLEEP ON ENTRY. NO SIGNS OF DISTRESS NOTED. RESP EVEN AND UNLABORED ON O2 2L. SAFETY PRECAUTIONS IN PLACE. CALL LIGHT WITHIN REACH. WILL CONTINUE TO MONITOR.
[2017-01-28 08:30] VITALS: BP 110/73
[2017-01-28 10:37] VITALS: BP 110/73
--- NOTE | 2017-01-28 12:19 | NUR ---
ATTEMPTED TO SEE PATIENT FOLLOWING HIS RESP TX, BUT O2 SATS AT REST WERE 84% ON 2L OF O2. RETURNED ABOUT 15 MIN LATER AND THEY WERE UP TO 93% ON 2 L. PORT O2 DONNED FOR GT 400 FEET X 1 WITHOUT SOB, BUT FATIGUED LAST 30 FEET. TRANSFERRED TO EDGE OF BED (EOB) WITH V.C.'S FOR HAND PLACEMENT. O2 AT 84%. O2 INCREASED TO 3L AND SATS INCREASED TO 89% IN < MIN. RESUMED AT 2L, LUNCH TRAY AND CALL JARRELL IN REACH.
[2017-01-28 14:28] LABS: HEMATOCRIT 46.5 % (39.0-50.0); IMMATURE GRANULOCYTES 0.3 % (0.0-1.0); MEAN CORPUSCULAR HGB 31.3 pG CALC (26.0-32.0); MEAN CORPUSCULAR HGB CONC 30.1 g/L CALC (32.0-36.0); NEUT# 7.19 thou/uL (1.82-7.42); RED BLOOD COUNT 4.47 mill/uL (4.70-6.10); RED CELL DISTRI WIDTH 14.5 % (11.5-15.5)
[2017-01-28 15:09] LABS: BUN 26 mg/dL (8-23); BUN/CREATININE RATIO 36 (12-20 (CALC)); CALCIUM 8.7 mg/dL (8.4-10.2); CHLORIDE 94 mmol/l (95-108); CREATININE 0.7 mg/dL (0.7-1.3); GFR > 60 ML/MIN (>=60 (CALC)); GFR FOR AFR.AMER. > 60 ML/MIN (>=60 (CALC)); GLUCOSE 109 mg/dL (82-115); MAGNESIUM 2.2 mg/dL (1.6-2.3); POTASSIUM 4.2 mmol/l (3.5-5.1); SODIUM 142 mmol/l (137-146)
[2017-01-28 15:16] LABS: ANION GAP 9 (6-22 (CALC))
[2017-01-28 15:26] LABS: CARBON DIOXIDE 43 mmol/l (22-30)
--- NOTE | 2017-01-28 15:40 | NUR ---
Spoke to patient about new medications and their side-effects during discharge med rec. 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 Discussed medications being discontinued (Diltiazem 90 mg, Spiriva Handihaler, Motrin, and Xanax). Discussed the dose increase of Diltiazem and side-effects such as orthostatic hypotension and bradycardia. Talked about how to take Zpack and Medrol dose pack and associated side-effects.
--- NOTE | 2017-01-28 16:07 | NUR ---
REPORT CALLED TO HAO RANGEL AT [facility].
--- NOTE | 2017-01-28 16:35 | NUR ---
PT SITTING AT SIDE OF BED WATCHING TV WITH O2 ON. NO COMPLAINTS OF PAIN FROM PT. RESP EVEN AND UNLABORED. WILL CONTINUE TO MONITOR.
--- NOTE | 2017-01-28 17:58 | NUR ---
PT PICKED UP BY [facility]. [facility] STAFF HAS PT PACKET. PT TRANSFERED VIA WHEELCHAIR WITH O2 2L WITH STAFF.
--- NOTE | 2017-01-28 17:58 | NUR ---
Discharge instructions given. Patient verbalizes understanding of same. Discharged in stable condition via [facility] with staff. All belongings sent with pt.
== END 2017-01-28 17:58 | DRG 189 ==
LOC: ED 07:40 → ED-I 08:52 → ED 09:10 → ICU 09:11 → MS2 01-25 16:22
PROVIDERS: Emergency Medicine; Nurse Practitioner Family; ADMIT Internal Medicine; ATTEND Internal Medicine
PROC: 5A09357 Assistance with Respiratory Ventilation, Less than 24 Consecutive Hours, Continuous Positive Airway Pressure (ICD-10-PCS; principal; 2017-01-23)
PROC: 0T9B70Z Drainage of Bladder with Drainage Device, Via Natural or Artificial Opening (ICD-10-PCS; 2017-01-23)
DX: J96.22 Acute and chronic respiratory failure with hypercapnia (principal); G93.41 Metabolic encephalopathy; I48.2 Chronic atrial fibrillation; J44.0 Chronic obstructive pulmonary disease with (acute) lower respiratory infection; J44.1 Chronic obstructive pulmonary disease with (acute) exacerbation; J96.21 Acute and chronic respiratory failure with hypoxia; J20.9 Acute bronchitis, unspecified; E03.9 Hypothyroidism, unspecified; F17.210 Nicotine dependence, cigarettes, uncomplicated; F03.90 Unspecified dementia, unspecified severity, without behavioral disturbance, psychotic disturbance, mood disturbance, and anxiety; Z99.81 Dependence on supplemental oxygen; Z79.82 Long term (current) use of aspirin
CPT/HCPCS: J1160; J1650